=== PATIENT | male | born 1940 | race Two or more races ===

== ENCOUNTER 2025-04-30 07:34 | Outpatient (CLI) | payer OTHER ==
[2025-04-30] VITALS (7 sets, daily range): BP systolic 115–141; BP diastolic 58–79; PULSE 43–52; RESP 15–20; TEMP 98.1; O2SAT 94–97
[2025-04-30] MEDS ORDERED: fentaNYL CITRATE 100 MCG/2 ML VL IV ONE (08:00)
[2025-04-30] MEDS ORDERED: MIDAZOLAM HCL 2MG/2ML 2ml VIAL (1mg/ml) IV ONE (08:00)
[2025-04-30] MEDS ORDERED: fentaNYL CITRATE 100 MCG/2 ML VL ONE (08:13)
[2025-04-30] MEDS ORDERED: MIDAZOLAM HCL 2MG/2ML 2ml VIAL (1mg/ml) ONE (08:13)
[2025-04-30] MEDS ORDERED: LIDOCAINE 2%HCL (LOCAL ANESTH.) INJ 10ml MDV ONE (08:21)
[2025-04-30] MEDS ORDERED: hydrALAZINE HCL 20 MG/ML VL ONE (08:37)
--- NOTE | 2025-04-30 09:31 | DVH ---
US US GUIDANCE FOR NEEDLE PLACEME, HISTORY: RENAL BX PROCEDURE: Informed consent was obtained. Limited ultrasound of the left kidney was obtained. The ov erlying skin was prepped with chlorhexidine which was allowed to dry and draped in the usual sterile fashion. Time out was performed. The skin and soft tissue were infiltrated with 1% lidocaine, and IV sedation was administered. Under real-time ultrasound guidance, 1 biopsy specimen was obtained using Biopince 18 gauge core biopsy needle. 5 minutes of manual compression was held. Post biopsy scan was performed. No immediate complication was noted. SEDATION: Dr. Adela Long was personally responsible for the administration of moderate sedation during the procedure performed, including the use of an independent trained observer who had no other duties during the procedure. The drugs utilized were IV fentanyl and versed (see nursing log for details). The total time of supervision by the attending physician was approximately 30 minutes. FINDINGS: Limited intraprocedural ultrasound demonstrates biopsy needle within the lower renal cortex of left kidney. No significant post procedural hematoma is noted. IMPRESSION: Ultrasound guided core biopsy of the left kidney. Pathology results pending.
== END 2025-04-30 17:00 | disposition home or self-care (01) ==
LOC: CT 07:34
PROVIDERS: ATTEND Internal Medicine Nephrology
DX: R80.9 Proteinuria, unspecified (principal); I12.0 Hypertensive chronic kidney disease with stage 5 chronic kidney disease or end stage renal disease; N18.32 Chronic kidney disease, stage 3b
CPT/HCPCS: 50200; 76942; 88300; J0360; J2003; J2250; J3010